=== PATIENT | female | born 1995 | race Caucasian/White ===

== ENCOUNTER 2018-12-06 18:28 | Emergency (ER) | payer SELFPAY ==
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
[2018-12-06 19:44] VITALS: BP 117/86
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
--- NOTE | 2018-12-06 20:30 | Cat Scan Report ---
CT head without contrast INDICATION : headace. Acute generalized headache today. TECHNIQUE: Axial imaging performed from the skull apex through the skull base without the use of con trast. All CT scans at this location are performed using CT dose reduction for ALARA by means of aut omated exposure control. COMPARISON: None FINDINGS: Parenchyma: No acute intracranial hemorrhage or parenchymal abnormality. Ventricles: Ventricles are normal in size and appear symmetric. Soft tissues: Soft tissues including the orbits appear normal. Bones: No acute osseous abnormality. Sinuses: There is mild mucosal thickening and several of the ethmoid air cells. Remaining sinuses an d mastoid air cells are clear. IMPRESSION: No acute abnormality. Signer Name: Dave Landon MD Signed: 12/06/2018 8:26 PM Workstation Name: [id number]
== END 2018-12-06 22:17 | disposition left against medical advice (07) ==
LOC: ED 18:28
DX: Z04.1 Encounter for examination and observation following transport accident (principal); Z53.21 Procedure and treatment not carried out due to patient leaving prior to being seen by health care provider
CPT/HCPCS: 70450